=== PATIENT | male | born 1990 | race Two or more races ===

== ENCOUNTER 2019-05-08 01:10 | Emergency (ER) | payer SELFPAY ==
--- NOTE | 2019-05-08 01:43 | EDM.PDOC ---
ED HPI GENERAL MEDICAL PROBLEM - General Chief Complaint: General Stated Complaint: MEDICAL CLEARANCE Time Seen by Provider: 05/08/19 01:36 Source of Information: Reports: Patient, Police History Limitations: Reports: No Limitations - History of Present Illness INITIAL COMMENTS - FREE TEXT/NARRATIVE: This is a 29-year-old male who presents to the emergency room with a chief complaint of being brought in for medical clearance. Patient was apparently intoxicated and has an abrasion on his ring finger. Onset: Today Duration: Minutes: Location: Reports: Upper Extremity, Left Severity: Mild Improves with: Reports: None Worsens with: Reports: None Associated Symptoms: Reports: No Other Symptoms - Related Data Home Meds: Home Meds . [No Known Home Meds] 05/08/19 [History] ED ROS GENERAL - Review of Systems Review Of Systems: Comprehensive ROS is negative, except as noted in HPI. Constitutional: Reports: No Symptoms HEENT: Reports: No Symptoms Respiratory: Reports: No Symptoms Cardiovascular: Reports: No Symptoms Endocrine: Reports: No Symptoms GI/Abdominal: Reports: No Symptoms : Reports: No Symptoms Musculoskeletal: Reports: No Symptoms Skin: Reports: Other (abrasion to the ring finger) Neurological: Reports: No Symptoms Psychiatric: Reports: No Symptoms Hematologic/Lymphatic: Reports: No Symptoms Immunologic: Reports: No Symptoms ED EXAM, GENERAL - Physical Exam Exam: See Below Free Text/Narrative:: 29-year-old gentleman presents to the emergency room with a chief complaint of an abrasion to the left index finger. On exam patient's finger shows small abrasion. Patient has full range of motion neurovascular intact. Exam Limited By: No Limitations General Appearance: Alert, WD/WN, No Apparent Distress Eye Exam: Bilateral Eye: PERRL Ears: Normal External Exam, Hearing Grossly Normal, Normal TMs Nose: Normal Inspection, Normal Mucosa, No Blood Throat/Mouth: Normal Inspection, Normal Lips, Normal Teeth, Normal Oropharynx, Normal Voice Head: Atraumatic, Normocephalic Neck: Normal Inspection, Supple, Non-Tender Respiratory/Chest: No Respiratory Distress, Lungs Clear, No Accessory Muscle Use Cardiovascular: Normal Peripheral Pulses, Regular Rate, Rhythm GI/Abdominal: Normal Bowel Sounds, Soft, Non-Tender (Male) Exam: No Hernia, Normal Inspection, Normal Prostate Rectal (Males) Exam: Deferred Extremities: Normal Inspection, Normal Range of Motion, No Pedal Edema, Normal Capillary Refill Neurological: Alert, Oriented, Normal Cognition Psychiatric: Normal Affect, Normal Mood Skin Exam: Warm, Intact, Normal Color Course - Vital Signs Last Recorded V/S: Last Vital Signs Temp 98.5 F 05/08/19 01:14 Pulse 102 H 05/08/19 01:14 Resp 18 05/08/19 01:14 BP 119/74 05/08/19 01:14 Pulse Ox 95 05/08/19 01:14 Departure - Departure Time of Disposition: :51 Disposition: Home, Self-Care 01 Condition: Good Clinical Impression: Abrasion of other finger, initial encounter - Discharge Information Instructions: Medical Screening Exam, Wound Care, Adult, Abrasion Referrals: [facility] [Outside] [facility] [Outside] PCP,None [Primary Care Provider] - Forms: ED Department Discharge Care Plan Goals: The following information is given to patients seen in the emergency department who are being discharged to home. This information is to outline your options for follow-up care. We provide all patients seen in our emergency department with a follow-up referral. The need for follow-up, as well as the timing and circumstances, are variable depending upon the specifics of your emergency department visit. If you don't have a primary care physician on staff, we will provide you with a referral. We always advise you to contact your personal physician following an emergency department visit to inform them of the circumstance of the visit and for follow-up with them and/or the need for any referrals to a consulting specialist. The emergency department will also refer you to a specialist when appropriate. This referral assures that you have the opportunity for followup care with a specialist. All of these measure are taken in an effort to provide you with optimal care, which includes your followup. Under all circumstances we always encourage you to contact your private physician who remains a resource for coordinating your care. When calling for followup care, please make the office aware that this follow-up is from your recent emergency room visit. If for any reason you are refused follow-up, please contact the [facility] emergency department at and ask to speak to the emergency department charge nurse. [facility] Primary care- [place] [address] Sepsis Event Note - Evaluation Sepsis Screening Result: No Definite Risk - Focused Exam Vital Signs: Vital Signs Temp Pulse Resp BP Pulse Ox 05/08/19 01:14 98.5 F 102 H 18 119/74 95 Date Exam was Performed: 05/08/19 Time Exam was Performed: 01:47
== END 2019-05-08 01:52 ==
LOC: MW.ED 01:10
DX: S60.411A Abrasion of left index finger, initial encounter (principal); X58.XXXA Exposure to other specified factors, initial encounter
CPT/HCPCS: 99282